=== PATIENT | male | born 1945 | race Caucasian/White ===

== ENCOUNTER 2016-05-01 21:00 | Emergency (ER) | payer OTHER, MEDICAID ==
[~2016-05-01] VITALS: Ht 165.1 cm; Wt 74.8 kg
[2016-05-01 21:12] VITALS: BP 143/89
[2016-05-01] MEDS ORDERED: LOTENSIN20 MG PO (21:17)
--- NOTE | 2016-05-01 21:21 | NUR ---
Patient ambulated to bed 06.
[2016-05-01] MEDS ORDERED: NACL 0.9% 1,000 ML IV SCH (21:23)
[2016-05-01] MEDS ORDERED: ONDANSETRON 4 MG/2 ML VIAL IVP ONE (21:25)
--- NOTE | 2016-05-01 21:28 | NUR ---
Dr. Jean-Baptiste evaluating patient at bedside.
--- NOTE | 2016-05-01 21:54 | NUR ---
XRAY at bedside.
[2016-05-01] MEDS ORDERED: INSULIN HUMAN REGULAR 100 UNITS/ML 10 ML VIAL IVP ONE ×2 (22:30)
--- NOTE | 2016-05-01 22:32 | NUR ---
PATIENT PRESENTS TO ED WITH SYNCOPE THIS MORNING, DIZZINESS [id number] AND FREQUENT URINATION . PT STATES HIS 5TH TOE ON THE RT FOOT HAS BEEN HURTING X2DAYS SINCE HE FELL . DENIES N/V/D; SKIN IS PINK/WARM/DRY; AAOX4 WITH EVEN AND STEADY GAIT; LUNGS CLEAR BL; HR EVEN AND REGULAR; PT DENIES ANY FEVER, CP, SOB, OR COUGH AT THIS TIME; PATIENT STATES PAIN OF 8/10 AT THIS TIME; VSS; PATIENT POSITIONED FOR COMFORT; HOB ELEVATED; BEDRAILS UP X2; BED DOWN. ER MD MADE AWARE OF PT STATUS. FAMILY AT BEDSIDE
[2016-05-01] MEDS ORDERED: ACETAMINOPHEN EXTRA STRENGTH 500 MG TAB PO ONE (23:45)
[2016-05-01] MEDS ORDERED: ACETAMINOPHEN EXTRA STRENGTH 500 MG TAB ONE (23:49)
[2016-05-02] MEDS ORDERED: INSULIN HUMAN REGULAR 100 UNITS/ML 10 ML VIAL IVP ONE ×2 (00:25)
[2016-05-02 01:31] VITALS: BP 143/89
--- NOTE | 2016-05-02 01:31 | NUR ---
IV removed, catheter intact and site benign. Applied folded 4x4 gauze and tape to stop bleeding. Patient discharged with v/s stable. Written and verbal after care instructions given and explained. Patient alert, oriented and verbalized understanding of instructions. Ambulatory with steady gait. All questions addressed prior to discharge. ID band removed. Patient advised to follow up with PMD. Rx of TYLENOL AND MOTFORMIN given. Patient educated on indication of medication including possible reaction and side effects. Opportunity to ask questions provided and answered.
== END 2016-05-02 01:31 | disposition home or self-care (01) ==
LOC: MED 21:00
DX: E11.65 Type 2 diabetes mellitus with hyperglycemia (principal); I10 Essential (primary) hypertension; E78.00 Pure hypercholesterolemia, unspecified
CPT/HCPCS: 36415; 71010; 80048; 80053; 81001; 82150; 82553; 82948; 83690; 83880; 84484; 85025; 85379; 85610; 85730; 96361; 96374; 96375; 96376; 99291; J1815; J2405; J7030; Q0092